=== PATIENT | female | born 1975 | race American Indian/Alaskan Native ===

== ENCOUNTER 2017-10-13 09:59 | Day surgery (SDC) | payer MEDICAID ==
[~2017-10-13 09:59] MED LIST: DECADRON ONE; DIPRIVAN 10 MG/ML IV ONE; SUBLIMAZE ONE; XYLOCAINE CARDIAC IV ONE; ZOFRAN ONE
--- NOTE | 2017-10-13 10:26 | Anesthesia Day of Surgery ---
Anesthesia Day of Surgery - Day of Surgery Patient Examined: Yes Patient H&P Reviewed: Yes Patient is NPO: Yes
--- NOTE | 2017-10-13 10:28 | Anesthesia Consultation ---
Anesthesia Consult and Med Hx Date of service: 10/13/17 - Airway Anesthetic Teeth Evaluation: Good ROM Head & Neck: Adequate Mental/Hyoid Distance: Adequate Mallampati Class: Class I Intubation Access Assessment: Probably Good - Pulmonary Exam CTA: Yes - Cardiac Exam Cardiac Exam: RRR - Pre-Operative Health Status ASA Pre-Surgery Classification: ASA2 Proposed Anesthetic Plan: General - Pulmonary Hx Asthma: Yes ("seasonal asthma" last used inhaler couple of mos ago) - Cardiovascular System Hx Hypertension: No - Central Nervous System Hx Psychiatric Problems: No - Other Systems Hx Cancer: No Hx Obesity: Yes
[2017-10-13] MEDS ORDERED: MORPHINE IV PRN (10:29)
[2017-10-13] MEDS ORDERED: TORADOL IV PRN (10:29)
[2017-10-13] MEDS ORDERED: ZOFRAN IV PRN (10:29)
[2017-10-13] MEDS ORDERED: XYLOCAINE 1% 20 mL ONE (10:31)
[2017-10-13] MEDS ORDERED: MONSEL'S TP ONE ×3 (10:32→12:29)
[2017-10-13] MEDS ORDERED: SILVER NITRATE TP ONE (10:32)
[2017-10-13] MEDS ORDERED: LUGOL'S SOLUTION 5% TP ONE (10:32)
[2017-10-13] MEDS ORDERED: PEPCID PO NR (11:00)
[2017-10-13] MEDS ORDERED: VERSED IV NR (11:00)
[2017-10-13] MEDS ORDERED: LACTATED RINGERS 1,000 ML IV SCH (11:00)
--- NOTE | 2017-10-13 11:10 | Short Stay Summary ---
Short Stay Documentation Date of service: 10/13/17 Narrative H&P: Pt is a 42yo BF LMP 10/06/17 presents for surgical evaluation and treatment for cervical dysplasia. 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 She is therefore scheduled for a Loop Electrocautery Excision Procedure (LEEP). - History Principal diagnosis: Cervical dysplasia H&P: obtained from office Past Medical History: other (Asthma) Past Surgical History: bowel surgery (Colonoscopy), Other (BTL) Social history: no significant social history, single - Allergies and Medications Current Medications: Allergies Penicillins Allergy (Verified 10/06/17 09:23) Unknown Home Medications Medication Instructions Recorded Confirmed Last Taken Type ALBUTEROL Inhaler [Proair] 2 puff IH QID PRN 10/06/17 10/06/17 Unknown History Active Medications Famotidine (Pepcid) 20 mg PO PREOP NR Stop: 10/13/17 23:59 Gentamicin Sulfate (Garamycin) 160 mg 1.5 mg/kg (160 mg) IV PREOP RAJEEV PRN Reason: Protocol Lactated Ringer's (Lactated Ringers) 1,000 mls @ 75 mls/hr IV DIRECT RAJEEV Clindamycin HCl (Cleocin 600 Mg/50 Ml) 600 mg in 50 mls @ 100 mls/hr IV PREOP NR PRN Reason: Protocol Ketorolac Tromethamine (Toradol) 30 mg IV ONCE PRN PRN Reason: Pain, Moderate (4-6) Stop: 10/13/17 23:59 Midazolam HCl (Versed) 2 mg IV PREOP NR Stop: 10/13/17 23:59 Morphine Sulfate (Morphine) 4 mg IV Q10MIN PRN PRN Reason: Pain , Severe (7-10) Ondansetron HCl (Zofran) 4 mg IV ONCE PRN PRN Reason: Nausea And Vomiting Stop: 10/13/17 16:00 - Physical exam General appearance: no acute distress Integumentary: no rash HEENT: Atraumatic Lungs: Clear to auscultation Breasts: deferred Heart: Regular rate Gastrointestinal: normal Female Genitourinary: deferred Rectal Exam: deferred Extremities: no ischemia Neurological: Normal gait, Normal speech - Brief post op/procedure progress note Date of procedure: 10/13/17 Pre-op diagnosis: Cervical dysplasia Post-op diagnosis: same Procedure: Loop Electrocautery Excision Procedure Anesthesia: MAC Findings: A grossly normal appearing cervix Surgeon: ANTONIO GLEASON Estimated blood loss: minimal Pathology: list (Cone shaped portion of cervix tagged at 6 and 12 O'clock.) Specimen disposition: to lab Condition: stable - Hospital course Hospital course: Unremarkable. - Disposition Condition at discharge: Good Disposition: DC- TO HOME OR SELFCARE Short Stay Discharge Plan Activity: no restrictions, other (Nothing per vagina x 2 weeks) Diet: regular Follow up with: JOE OLIVER [Other] - 7 Days ANTONIO GLEASON MD [Staff Physician] - 7 Days Prescriptions: HYDROcodone/APAP 5-325 [[place] 5/325] 1 each PO Q6HR PRN #10 tablet PRN Reason: Pain Ibuprofen [Motrin] 800 mg PO Q8HR PRN #30 tablet PRN Reason: Moder Pain Unrelieved By [place]
[2017-10-13] MEDS ORDERED: GARAMYCIN IV SCH (11:15)
[2017-10-13 11:25] LABS: Hematocrit 35.2 % (30.3-42.9); Hemoglobin 11.8 gm/dl (10.1-14.3)
[2017-10-13] MEDS ORDERED: CLEOCIN 600 MG/50 mL 600 MG/50 ML BAG IV NR (12:00)
--- NOTE | 2017-10-13 12:53 | Operative Report ---
Operative Report Operative Report: Date of procedure: 10/13/2017 Pre-operative diagnosis: Cervical dysplasia Post-operative diagnosis: Same Procedure name(s): Loop electrocautery excision procedure Surgeon: Alexander Mitchell MD Coremaker Pipe: None Anesthesia: Gen. mask EBL: 20 mL's Findings: A grossly normal looking cervix. LEEP procedure performed with 4 specimens. The anterior and posterior lip of the cervix was tagged at the 6 and 12:00 positions, and the ECS sent separately. A small 1 cm left vaginal wall laceration repaired using 3-0 Vicryl suture. Procedure: After the patient was correctly identified, she was prepped and draped in usual sterile fashion and placed in the dorsolithotomy position. First the bladder was emptied using a straight catheter. Next a speculum was placed in the vaginal vault and anterior lip of the cervix was grasped using single-tooth tenaculum. A large 12 x 15 cm loop was used to perform the LEEP procedure. However the specimen was removed in 4 different pieces. The anterior and the posterior lip of the cervix was tagged at the 6 and 12:00 positions, and a smaller loop was used to perform the ECS was as also sent separately. The base of the cervix was cauterized using the Bovie cautery, and Monsel solution was also placed. There was noted to be a 1 cm left vaginal wall laceration was repaired using 3-0 Vicryl suture in a [id number] configuration. At this point the procedure was considered complete. All instruments removed from the vagina. The patient tolerated the procedure well and was transported to recovery in stable condition.
[2017-10-13 13:31] VITALS: BP 124/85
--- NOTE | 2017-10-13 14:30 | Post Anesthesia Evaluation ---
- Post Anesthesia Evaluation Patient Participated: Yes Airway Patent: Yes Stable Respiratory Function: Yes Nausea/Vomiting: No Temp > 96.8F: Yes Pain Manageable: Yes Adequeate Hydration: Yes Anesthesia Complications: No
== END 2017-10-13 13:52 | disposition home or self-care (01) ==
LOC: OR 09:59
PROVIDERS: ATTEND Obstetrics & Gynecology
DX: N88.8 Other specified noninflammatory disorders of cervix uteri (principal); N72 Inflammatory disease of cervix uteri; J45.909 Unspecified asthma, uncomplicated; E66.9 Obesity, unspecified; Z68.41 Body mass index [BMI] 40.0-44.9, adult; Z98.890 Other specified postprocedural states; Z98.51 Tubal ligation status; Z88.0 Allergy status to penicillin
CPT/HCPCS: 36415; 57460; 81025; 85014; 85018; 88305; J1100; J1580; J2001; J2250; J2405; J2704; J3010; J7120; 88307

== ENCOUNTER 2021-03-23 14:34 | Outpatient (CLI) | payer BC ==
--- NOTE | 2021-03-23 16:07 | Magnetic Resonance Report ---
Bilateral breast MR without and with contrast. 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 Patient has un derwent surgical excision. Comparison: 02/10/2021. Technique: Multiplanar multisequence MR images of the breast were obtained before and after the intra venous administration of 20 ml of Clariscan contrast agent. Post processing analysis and review was p erformed on a separate computer workstation. Findings: The breast are composed of primarily scattered fibroglandular breast densities. There is mild backgro und parenchymal enhancement within both breasts. RIGHT BREAST: Postsurgical change within the right inferior breast is noted at site of recent surgica l excision with associated 3.4 x 1.6 cm seroma/hematoma. There is mild low low level enhancement surr ounding this region consistent with postsurgical change. No discrete enhancing mass, dominant focus, or other enhancement is identified to suggest the presence of malignancy. LEFT BREAST: No discrete enhancing mass, dominant focus, or other abnormal enhancement is identified within the left breast. No abnormal axillary or internal mammary lymph nodes. Impression: No evidence of breast malignancy. BIRADS 2: Benign A normal MRI does not exclude the presence of some forms of breast malignancy as literature reports s uggest that some forms of ductal carcinoma in situ or lobular carcinoma, particularly, may not be det ected on MRI. The sensitivity and specificity of MRI for cancers under 5 mm may be reduced. MRI does not replace the recommendation for annual conventional mammographic evaluation and should be used as an adjunct to mammography and physical examination as necessary. Signer Name: Jax Rossi MD Signed: 03/23/2021 4:02 PM Workstation Name: [id number]
== END 2021-03-23 14:35 | disposition home or self-care (01) ==
LOC: SPVIMAG 14:34
PROVIDERS: ATTEND Surgery
DX: N60.81 Other benign mammary dysplasias of right breast (principal); N64.89 Other specified disorders of breast
CPT/HCPCS: A9575; C8908; 77049